=== PATIENT | male | born 1980 | race Caucasian/White ===

== ENCOUNTER 2020-05-24 11:15 | Outpatient (CLI) | payer MEDICARE, SELFPAY ==
--- NOTE | 2020-05-24 11:28 | XR_ITS ---
WS: [id number] Right knee, 3 views, 05/24/2020 Clinical Data: PAIN IN RIGHT KNEE Comparison: None. Findings: No fractures or dislocations are seen. The joint spaces are normal. The patella is intact. The soft t issues are unremarkable. XR/XR knee RT 3V* [id number] Impression: Negative right knee.
== END 2020-05-24 11:16 | disposition home or self-care (01) ==
LOC: RADWPI 11:24
PROVIDERS: PCP Family Medicine; Visit Provider Anesthesiology Pain Medicine
DX: M25.561 Pain in right knee (principal)
CPT/HCPCS: 73562

== ENCOUNTER 2021-10-17 08:51 | Outpatient (CLI) | payer MEDICARE, SELFPAY ==
--- NOTE | 2021-10-17 08:57 | MR_ITS ---
WS: [id number] MRI CERVICAL SPINE NONCONTRAST HISTORY: CERVICALGIA COMPARISON: None available. Technique: Multiplanar, multisequence noncontrast imaging of the cervical spine. Mild straightening of the normal lordosis. Very minimal reversal the cervical spine centered at C4-5. Signal within the cervical cord is normal. Visualized posterior fossa is unremarkable. Craniocervical junction, C1 and C2 relationship, odontoid process and soft tissues are normal. C2-C3: Small RIGHT foraminal osteophyte resulting in mild foraminal stenosis. C3-C4: Very mild annular osteophytic ridging. No focal protrusions. No significant stenosis. C4-C5: Shallow central disc protrusion and LEFT foraminal disc osteophyte. Mild LEFT foraminal narrow ing due to disc osteophyte disease. C5-C6: Very small RIGHT paracentral disc protrusion. Mild facet arthritis. No significant stenosis. C6-C7: Mild osteophytic ridging. No central stenosis. C7-T1: Normal. Paraspinal soft tissue are normal. MR/MR cervical spin wo con* [id number] IMPRESSION: 1. No high-grade central or foraminal stenosis. 2. Mild RIGHT foraminal stenosis at C2-3 due to an osteophyte. 3. Central disc protrusion and LEFT foraminal disc osteophyte at C4-5 resultin g in mild LEFT foraminal stenosis. 4. Very small RIGHT paracentral disc protrusion at C5-6.
--- NOTE | 2021-10-17 09:11 | XR_ITS ---
WS: [id number] XR cervical spine fl/ex [id number] REASON FOR EXAM: CERVICALGIA FINDINGS: Normal cervical spine curvature on AP and lateral views. No compression deformity or focal vertebral body abnormality. The intervertebral disc spaces are relatively well-preserved. No significant on the neutral and extension views. With flexion 2 to 3 mm of anterolisthesis of C3 on C4, 3-4 of anterolisthesis of C4 on C5, and 3 mm o f anterolisthesis of C5 on C6 is demonstrated. XR/XR cervical spine fl/ex [id number] IMPRESSION: Malalignment during flexion as above.
== END 2021-10-17 08:52 | disposition home or self-care (01) ==
LOC: RAD 08:53
PROVIDERS: PCP Family Medicine; Visit Provider Anesthesiology Pain Medicine
DX: M48.02 Spinal stenosis, cervical region (principal); M25.78 Osteophyte, vertebrae; M50.222 Other cervical disc displacement at C5-C6 level
CPT/HCPCS: 72040; 72141

== ENCOUNTER → 2021-12-19 13:25 | Outpatient (BNVA) | payer MEDICARE, SELFPAY | PROVIDERS: PCP Family Medicine; Visit Provider Emergency Medicine | DX: S99.911A Unspecified injury of right ankle, initial encounter (principal); W19.XXXA Unspecified fall, initial encounter | CPT/HCPCS: 73610 ==

== ENCOUNTER 2022-01-29 12:06 | Outpatient (CLI) | payer MEDICARE, SELFPAY ==
--- NOTE | 2022-01-29 12:23 | MR_ITS ---
WS: [id number] MRI LUMBAR SPINE NONCONTRAST HISTORY: RIGHT SCIATICA COMPARISON: 03/28/2014 TECHNIQUE: Sagittal and axial multisequence imaging is submitted. Mild thoracolumbar scoliosis. Straightening and mild RIGHT convexity lumbar spine. Marrow edema in the adjacent endplates of L5 and S1 is new. Otherwise. Mild disc space narrowing and desiccation. Conus terminates normally at L1. L1-L2: Normal. L2-L3: Mild disc bulging with mild encroachment upon the ventral thecal sac and subarticular recesses . Very mild progression of narrowing involving the subarticular recesses greatest on the RIGHT. L3-L4: Mild diffuse annular disc bulging with a central fissure. Mild ligamentum flavum hypertrophy a nd facet arthritis. Central disc protrusion described on the prior examination has resolved. L4-L5: Diffuse annular disc bulging and osteophytic ridging. Moderate size disc protrusion extends be low the disc space on the RIGHT. There is encroachment into the RIGHT lateral subarticular recess and deformity of the thecal sac. Although there is encroachment upon both traversing L5 nerve roots much greater on the RIGHT. Mild ligamentum flavum hypertrophy and facet arthritis. L5-S1: Diffuse annular disc bulging and osteophytic ridging. Large central to RIGHT paracentral disc protrusion extends slightly below the disc space into the subarticular recess. There is significant d eformity of the thecal sac and contact on the RIGHT S1 nerve root. This is a large disc protrusion wi th only minimal increase in size since 2013. Mild bilateral foraminal stenosis with moderate central stenosis. Significant contact on the S1 nerve roots bilaterally but much greater on the RIGHT. MR/MR lumbar spine wo con* [id number] IMPRESSION: 1. Large central to RIGHT paracentral disc protrusion extends below the disc l evel at L5-S1. There is significant contact and displacement of the S1 nerve ro ots but greatest on the RIGHT. Additional moderate central and bilateral forami nal stenosis at the L5-S1 level. 2. Moderate-sized RIGHT disc protrusion at L4-5 extends into the RIGHT lateral subarticular recess with encroachment upon the RIGHT traversing L5 nerve root. Additional contact on the LEFT L5 nerve root but not as much as on the RIGHT. 3. Mild subarticular recess narrowing at L2-3 but greatest on the RIGHT.
== END 2022-01-29 12:07 | disposition home or self-care (01) ==
PROVIDERS: PCP Family Medicine; Visit Provider Family Medicine
DX: M54.31 Sciatica, right side (principal); M51.27 Other intervertebral disc displacement, lumbosacral region; M51.26 Other intervertebral disc displacement, lumbar region
CPT/HCPCS: 72148

== ENCOUNTER → 2022-02-21 09:00 | Outpatient (BNVA) | payer MEDICARE, SELFPAY | PROVIDERS: PCP Family Medicine; Visit Provider Orthopaedic Surgery | DX: M47.896 Other spondylosis, lumbar region (principal); M48.062 Spinal stenosis, lumbar region with neurogenic claudication; M48.07 Spinal stenosis, lumbosacral region; M47.817 Spondylosis without myelopathy or radiculopathy, lumbosacral region | CPT/HCPCS: 72110; 99204 ==

== ENCOUNTER 2022-04-19 05:56 | Day surgery (SDC) | payer MEDICARE, SELFPAY ==
[2022-04-15 08:12] VITALS: BMI 26.5
--- NOTE | 2022-04-15 08:42 | P.ANESASSM_ITS ---
Pre-Anesthetic Assessment Height/Weight: Height 1.78 m Weight 83.915 kg Preop Diagnosis: Lumbar stenosis with neurogenic claudication Operation Date: 04/19/22 07:00 Proposed Procedures p Lumbar Spine Decompression L4/5 L5/S1 [id number]/89711/M48.062(Not Applicable) - Rian Hyman DO Familial anesthetic complications: None Was Beta Jey taken within 24 hours: N/A Was Clonidine taken within 24 hours: N/A Social Tobacco and No alcohol Exam alert, oriented x 3, clear to auscultation bilaterally and regular rate & rhythm Airway Submandibular: within normal limits Cervical ROM: within normal limits (Full ROM of neck however feels paresthesia in leg with neck extension ) Mallampati: Class I Comments: Comments: Some missing teeth Pulmonary None reported CV/HEM None reported METS > 4 None reported Hepatic None reported GI Gastroesophageal Reflux Disease (Diet related ) Metabolic None reported Musc/skel Lower Back Pain Lumbar stenosis Neuropsych Depression Anesthetic Plan ASA status: 3 Anesthesia: Anesthesia Evaluation and General Other: We discussed risk and benefits of general anesthesia including PONV, sore throat (sometimes severe), corneal abrasion, positioning and peripheral nerve injuries, life threatening allergic reaction, post operative ICU admission requiring prolonged intubation, aspiration, stroke, heart attack, , permanent blindness, and rare incidences of recall. Patient consents to proceed with general anesthesia. We discussed perioperative use of meloxicam and our general surgery physician assistant of continuing this through surgery at [facility]. We discussed possible slight increase risk of bleeding associated with continuing meloxicam. We discussed that the pharmokinetic profile of meloxicam would require a ten day hold if the patient wanted to completely eliminate the risk. Patient was given option to continue the medication, reschedule, or stop meloxicam today and continue with surgery as scheduled. Patient elects to proceed with surgery, plans to stop meloxicam today as he feels this is more maintenance. Risk of > 500 ml blood loss (7ml/kg in children): No Medications/Allergies Home Medications Medication Instructions Recorded Confirmed Last Taken Type bupropion HCl 150 mg tablet,12 hr 150 mg PO DAILY 07/12/21 04/15/22 Unknown History sustained-release (Wellbutrin SR) hydrocodone 10 mg-acetaminophen 1 tab PO BID PRN Pain 07/12/21 04/15/22 Unknown History 325 mg tablet carisoprodol 350 mg tablet (Soma) 350 mg PO TID 02/21/22 04/15/22 Unknown History gabapentin 300 mg capsule 300 mg PO DAILY 02/21/22 04/15/22 Unknown History meloxicam 15 mg tablet 15 mg PO DAILY 02/21/22 04/15/22 Unknown History Allergies Allergy/AdvReac Type Severity Reaction Status Date / Time vancomycin Allergy Severe unknown Verified 04/15/22 08:11 ibuprofen Allergy Mild unknown Verified 04/15/22 08:11 Penicillins Allergy Mild unknown Verified 04/15/22 08:11 REPLACED BY [facility] Anesthesia Family History Father Cancer lung Social History Smoking and tobacco status: current every day smoker cigarettes Data Anesthesia Cardiac Studies: No Data to Display
--- NOTE | 2022-04-19 | XR_ITS ---
WS: [id number] XR lumbar spine 1V [id number] REASON FOR EXAM: right sided L4-5; L5-s1 decompression FINDINGS: Surgical device overlying the right L4-L5 disc space. Subsequent surgical device overlying the right L5-S1 disc space. XR/XR lumbar spine 1V [id number] IMPRESSION: Intraoperative lumbar level localization as above.
--- NOTE | 2022-04-19 | SCC_ITS ---
Procedure: 1. L4/5 laminecomy with partial facetectomy and diskectomy 2. L5/S1 laminectomy with partial facetectomy 16.5 seconds of fluoroscopic guidance, for a cumulative dose of 5.8 mGy, was provided to Dr. Hyman by the radiology department. C-arm images of the lumbar spine were saved for the patient's permanent record. [facility]
--- NOTE | 2022-04-19 06:07 | P.ANESUD_ITS ---
Pre-Anesthetic Update Pre-Anesthetic Assessment: Date of Surgery/Procedure: 04/19/22 Preop Vivien gnosis: Lumbar stenosis with neurogenic claudication Proposed Procedure: Operation Date: 04/19/22 07:00 Proposed Procedures p Lumbar Spine Decompression L4/5 L5/S1 [id number]/M48.062(Not Applicable) - Rian Hyman, DO Any changes to Pre-Anesthetic Assessment?: No Last Intake: 04/18/22 Exam: Pre-Anes Outpt Exam: alert, oriented x 3, clear to auscultation bilaterally and regular rate & rhythm Cardiac Studies: No Data to Display
[2022-04-19 06:13] VITALS: BP 129/85; PULSE 85; RESP 18; TEMP 36.6; O2SAT 97
--- NOTE | 2022-04-19 06:31 | PM.HP ---
Providers/Chief Complaint Primary Care Provider: Simon Ugalde MD Chief Complaint: LUMBAR DECOMPRESSION L4/5 L5/S1 [id number] History of Present Illness Aroldo Law is a 41 year old male He states his lower back pain has been on going for several years. He reports numbness, tingling and weakness in his right lower extremity. He states he has frequent falls due to the pain. He states his pain is located in his lower back, and posterior right leg. He has tried injections and therapy in the past with no relief. He states he can not walk long distances due to the lower back pain. He states he has trouble completing ADLs. Chief Complaint: Lower back pain Onset: 20 years ago Duration: Constant Characteristics: Throbbing Severity: 10/21 Location: Lower back pain Radiating symptoms: Radiates to posterior right leg Aggravating factors: Sitting for long periods of time Alleviating factors: None Neuro deficits: Reports numbness, tingling, weakness, Denies incontinence of bowel/bladder, saddle anesthesia. Prior tx: Injections w/ Dr. Spicer Review of Systems General: Reports: 10 or more systems reviewed and unremarkable except in HPI and below Const: Denies: fever(s), chills or body aches Card: Denies: chest pain or orthopnea Resp: Denies: dyspnea, productive cough or wheezing GI: Denies: abdominal pain, nausea or vomiting Musc: Reports: back pain Skin/Breast: Denies: changes in skin color or dry skin Neuro: Reports: numbness in extremities and weakness in extremities Psych: Denies: anxiety Dangelo/Lymph: Denies: easy bruising or easy bleeding Medications/Allergies Home Medications Medication Instructions Recorded Confirmed Last Taken Type bupropion HCl 150 mg tablet,12 hr 150 mg PO DAILY 07/12/21 04/19/22 04/18/22 History sustained-release (Wellbutrin SR) hydrocodone 10 mg-acetaminophen 1 tab PO BID PRN Pain 07/12/21 04/19/22 04/19/22 History 325 mg tablet carisoprodol 350 mg tablet (Soma) 350 mg PO TID 02/21/22 04/15/22 Unknown History gabapentin 300 mg capsule 300 mg PO DAILY 02/21/22 04/15/22 Unknown History meloxicam 15 mg tablet 15 mg PO DAILY 02/21/22 04/15/22 Unknown History Allergies Allergy/AdvReac Type Severity Reaction Status Date / Time vancomycin Allergy Severe unknown Verified 04/15/22 08:11 ibuprofen Allergy Mild unknown Verified 04/15/22 08:11 Penicillins Allergy Mild unknown Verified 04/15/22 08:11 PFSH Acute PFSH: Family History Father Cancer lung Social History Smoking and tobacco status: current every day smoker cigarettes Vitals/I&O/Wt Last Vital Signs Temp 98 F 04/19/22 06:13 Pulse 85 04/19/22 06:13 Resp 18 04/19/22 06:13 BP 129/85 04/19/22 06:13 Pulse Ox 97 04/19/22 06:13 O2 Del Method 04/19/22 06:13 Physical Exam Narrative: CONSTITUTIONAL: The patient is a normal appearing [] in no apparent distress. GENERAL: Patient in no acute distress. CARDIAC: Regular rate and rhythm. CHEST: Normal inspiratory effort, normal respiratory rate. ABDOMEN: Soft and nontender. SKIN: Clear, warm and intact. NEURO?PSYCH: The patient is alert and oriented to person, place and time. Sensorv /SILT Motor StrengthShoulder abduction C5 5/5Wrist extension C6 5/5Elbow extension C7 5/5Hand Parachute Supervisor C8 5/5Finger abduction T15/5 Radial/ Ulnar/ Median n intact LowerSensory (SILT)Motor StrengthHin flexion L2/3Ant/inner thigh 5/5Hip adduction L2/3 5/5Knee extension L4 Lat thigh, 5/5Toe dorsiflexion L5 5/5Ankle dorsiflexion L5/ Y12Xhhopxf flexion S1 5/5 DTRBleeps 2+Triceps 2+Brachioradialis 2+Patellar 2+Achilles 2+ MUSCULOSKELETAL: [] UPPEREXTREMITIES: The patient had full active ROM in fingers, wrist, elbow, and shoulder. The patient demonstrated ability to fully flex/extend/abduct/adduct fingers, make ok sign, cross 2nd/3rd digits, extend 1st digit fully.. Radial pulse 2+, CR<2 seconds. LOWER EXTREMITIES: Pt has full, active ROM of toes, ankle, knee, and hip. Dorsalis pedis/posterior tibialis pulses 2+, CR<2 seconds. SPINE: Skin warm, dry, intact. A&P Assessment and plan (1) Lumbar stenosis with neurogenic claudication: Plan ?lumbar stenosis significant at L4-5 and L5-S1 is worse on the right side.? Which correlates with symptoms.? Patient's been seen Dr. Teran for epidural steroid injections which no longer helping.? At this point my plan is to do a right L4-5 and right L5-S1 minimally invasive decompression.? Attestations Medical Necessity Statement*: failed conservative tx Coding Level of Care Code Acute Electric Powerline Examiner for Chg Fwd Diagnoses Lumbar stenosis with neurogenic claudication M48.062
[2022-04-19] MEDS: sodium chloride 0.9% 1,000 ML 30 ML IV (06:39)
[2022-04-19] MEDS: clindamycin 900 MG/50 ML PREMIX 100 MG IV (06:56)
[2022-04-19 08:28] VITALS: BP 161/80; PULSE 75; RESP 12; TEMP 37.1; O2SAT 100
[2022-04-19 08:30] VITALS: BP 153/105; PULSE 91; RESP 11; O2SAT 98
[2022-04-19 08:35] VITALS: BP 146/100; PULSE 90; RESP 16; O2SAT 97
--- NOTE | 2022-04-19 08:39 | PM.OP ---
Operative Report Date of procedure: April 19, 2022 Pre-op diagnosis: Preop Diagnosis Lumbar stenosis with neurogenic claudication Post-op diagnosis: same Procedure done: 1. L4/5 laminecomy with partial facetectomy and diskectomy 2. L5/S1 laminectomy with partial facetectomy Surgeon: Rian Hyman Stitching Machine Feeder Or Offbearer: Jonas Aguilar Estimated blood loss (mL): 5 Procedure: 1. L4/5 laminecomy with partial facetectomy and diskectomy 2. L5/S1 laminectomy with partial facetectomy Patient is brought to the operative suite. After undergoing anesthesia they are placed in the prone position. All areas of impingement are well padded. Patient is then prepped and draped in the normal sterile fashion. A skin incision is made over the L4/5 level. This is confirmed under c-arm guidance. A series of dilators are passed and the tubular retractor is docked on the L4 lamina. A bovie is used to clear the soft tissue off the lamina and the L 4/5 facet joint. A high speed ba is then used to perform the laminectomy and take down the medial aspect of the L 4/5 facet joint. A kerrison rongeure was then used to take down the remaining lamina and smooth the edge of the laminectomy up to the point where the ligamentum flavum attaches. Attention was then brought to the medial aspect of the facet joint. The remaining medial aspect of the superior and inferior aspect of the facet joint were taken down with the kerrison from the pedicle of L4 to L 5. The facet joint had significant hypertrophy. Attention was then brought to the Ligamentum Flavum. The ligament was taken down from the lamina of L4 to L5 and out medially to the remaining facet joint. The ligament was thick. The dura was then exposed. The dura was in good repair. The L5 nerve was retracted medially. The disc was identified. There was a small piece of disc is herniated out this was removed with a micropituitary. The L4 nerve was then traced with a curette out the L4/5 foramen and found to be adequately decompressed. The L5 nerve was traced with a curette around the L5 pedicle. The lateral recess was opened with a kerrison helping to further decompress the L5 nerve. Wound is then irrigated copiously with saline and surgiflo is used to stop any bleeding. The tubular retractor is removed and A skin incision is made over the L5/S1 level. This is confirmed under c-arm guidance. A series of dilators are passed and the tubular retractor is docked on the L5 lamina. A bovie is used to clear the soft tissue off the lamina and the L 5/S1 facet joint. A high speed ba is then used to perform the laminectomy and take down the medial aspect of the L 5/S1 facet joint. A kerrison rongeure was then used to take down the remaining lamina and smooth the edge of the laminectomy up to the point where the ligamentum flavum attaches. Attention was then brought to the medial aspect of the facet joint. The remaining medial aspect of the superior and inferior aspect of the facet joint were taken down with the kerrison from the pedicle of L5 to S1. The facet joint had significant hypertrophy. Attention was then brought to the Ligamentum Flavum. The ligament was taken down from the lamina of L5 to S1 and out medially to the remaining facet joint. The ligament was thick. The dura was then exposed. The dura was in good repair. The L5 nerve was then traced with a curette out the L5/S1 foramen and found to be adequately decompressed. The S1 nerve was traced with a curette around the S1 pedicle. The lateral recess was opened with a kerrison helping to further decompress the S1 nerve. Wound is then irrigated copiously with saline and surgiflo is used to stop any bleeding. The tubular retractor is removed and the wound is closed with vicryl and monocryl suture. Glue is then used to protect the wound. A sterile dressing is then placed. Patient was then placed in the supine position and transferred to the PACU in stable condition.
[2022-04-19 08:40] VITALS: BP 129/79; PULSE 75; RESP 17; TEMP 37.1; O2SAT 95
[2022-04-19] MEDS: HYDROcodone-acetaminophen 10-325 mg Tablet 1 TAB PO (09:15)
[2022-04-19 09:37] VITALS: BP 109/62; PULSE 78; RESP 18; TEMP 36.6; O2SAT 97
--- NOTE | 2022-04-19 14:39 | ANE.PACU2 ---
Inpatient post-anesthesia follow up: Airway intact: Yes Vital signs: Temperature 98 F Pulse Rate 78 Respiratory Rate 18 Blood Pressure 109/62 Pulse Oximetry 97 Oxygen Delivery Me thod Room Air Oxygen Flow Rate 6 Fraction of Inspir ed Oxygen Hydration adequate: Yes Nausea and vomiting: No Pain level: 1 Mental status: Baseline
== END 2022-04-19 10:17 | disposition home or self-care (01) ==
PROVIDERS: PCP Family Medicine; Visit Provider Orthopaedic Surgery
PROC: (CPT 63005; principal; 2022-04-19 07:00)
DX: M48.062 Spinal stenosis, lumbar region with neurogenic claudication (principal); K21.9 Gastro-esophageal reflux disease without esophagitis; F17.210 Nicotine dependence, cigarettes, uncomplicated
CPT/HCPCS: 63047; 63048; 51702; 72020; 76000; J1100; J1170; J2250; J2405; J2704; J2710; J3010; J3490; J7030

== ENCOUNTER → 2022-05-02 09:02 | Outpatient (BNVA) | payer MEDICARE, SELFPAY | PROVIDERS: PCP Family Medicine; Visit Provider Orthopaedic Surgery | DX: Z47.89 Encounter for other orthopedic aftercare (principal) | CPT/HCPCS: 99024 ==

== ENCOUNTER → 2022-06-04 15:40 | Outpatient (BNVA) | payer MEDICARE, SELFPAY | PROVIDERS: PCP Family Medicine; Visit Provider Physician Assistant | DX: Z47.89 Encounter for other orthopedic aftercare (principal) | CPT/HCPCS: 99024 ==

== ENCOUNTER → 2025-03-10 15:00 | Outpatient (BNVA) | payer MEDICARE, SELFPAY | PROVIDERS: PCP Family Medicine; Visit Provider Orthopaedic Surgery | DX: M48.02 Spinal stenosis, cervical region (principal) | CPT/HCPCS: 72040; 99213 ==

== ENCOUNTER → 2025-05-04 10:48 | Outpatient (BNVA) | payer MEDICARE, SELFPAY | PROVIDERS: PCP Family Medicine; Visit Provider Family Medicine | DX: Z00.00 Encounter for general adult medical examination without abnormal findings (principal) | CPT/HCPCS: 80053; 80061; 85025 ==

== ENCOUNTER → 2025-06-16 16:17 | Outpatient (BNVA) | payer MEDICARE, SELFPAY | PROVIDERS: PCP Family Medicine; Referring Provider Orthopaedic Surgery; Visit Provider Specialist | DX: M54.2 Cervicalgia (principal); R20.0 Anesthesia of skin; R20.2 Paresthesia of skin | CPT/HCPCS: 95911 ==

== ENCOUNTER → 2025-06-23 13:48 | Outpatient (BNVA) | payer MEDICARE, SELFPAY | PROVIDERS: PCP Family Medicine; Visit Provider Specialist | DX: M47.12 Other spondylosis with myelopathy, cervical region (principal); R20.0 Anesthesia of skin; R20.2 Paresthesia of skin; I69.398 Other sequelae of cerebral infarction; R25.2 Cramp and spasm; G93.1 Anoxic brain damage, not elsewhere classified | CPT/HCPCS: 95885; 95907; 99204 ==